=== PATIENT | male | born 1960 | race Caucasian/White ===

== ENCOUNTER 2018-09-14 10:53 | Day surgery (SDC) | payer OTHER, SELFPAY ==
--- NOTE | 2018-09-14 11:06 | PCM.HP.BLA ---
History and Physical Date of Admission: 09/14/18 HISTORY AND PHYSICAL ? Robert López 1960 ? REFERRING PHYSICIAN: Self ? CHIEF COMPLAINT: Consult ? HPI: The patient is a 57 year old male referred for endoscopy. notes a history of colon polyps and family history of colon cancer-brother. He denies any change in bowel habits, weight changes, blood in stools, black tarry stools or abdominal pain. The patient notes no history of upper GI complaints. ? Patient's most recent colonoscopy was in August [address] Green with findings of diverticulosis and benign polyps, 3 year follow-up recommended. ? Patient's past medical history is significant for seizures. States has not had a grand mal seizure in over 20 years, but has had sleep-related focal seizures within the last 5 years. Notes chronic perianal dermatitis and hemorrhoids. Has sleep apnea and uses a CPAP. Denies any cardiac issues. Denies problems with sedation in the past. ? ? PAST?MEDICAL?HISTORY ? Cholelithiasis 02/09/2013 ? Elevated prostate specific antigen (PSA) 04/03/2016 ? Essential hypertension, benign ? ? Grand mal seizure (HCC) 01/19/2013 ? Last seizure in 01-15: majority of his events have been nocturnal in the first hour of sleep MRI 05-20: no frontal lobe abnormalities, rec MRA for possible aneurysm MRA 06-19: negative for aneurysm but there was considerable motion artifact ? HYPERLIPIDEMIA NEC/NOS 12/05/2007 ? LDL 144, HDL 54, TG 147 in 06-15 ? Obstructive sleep apnea ? ? 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 ? Unspecified sleep apnea ? PAST?SURGICAL?HISTORY ? COLONOSCOP W/ OR W/O BRSH SPEC ? 04/01/11 ? COLONOSCOP W/ OR W/O BRSH SPEC ? 08/18/2015 ? Colonoscopy ? CYSTOSCOPY ? 04/03/2016 ? LAP CHOLECYSTECT/CHOLANGIOGRAPHY ? 02/09/13 ? normal IOC ? PAST SURGICAL HISTORY OF ? 2018 ? 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 REPAIR ING HERNIA,5+Y/O,REDUCIBL ? 1961 ? Hernia repair, inguinal ? CURRENT?MEDICATIONS cholecalciferol (VITAMIN D-3) 5,000 unit tab Take 5,000 Units by mouth once daily. tamsulosin ER (FLOMAX) 0.4 mg cap Take 2 capsules by mouth daily at bedtime. Halobetasol Propionate (ULTRAVATE) 0.05 % cream Apply 1 application to affected area as needed. sildenafil (VIAGRA) 50 mg tablet Take 1 tablet by mouth as needed. levETIRAcetam ER (KEPPRA XR) 750 mg 24 hr tablet Take 2 tablets by mouth once daily. Hydrochlorothiazide 12.5 mg capsule TAKE 1 CAPSULE DAILY atenolol (TENORMIN) 50 mg tablet TAKE 1 TABLET DAILY lzpudgyf-fixrutjah-cinutwoiandeap (CORTISPORIN) otic solution Use 3 Drops in both ears four times daily as needed (itching, rash). Take for up to 7 days as needed. DILANTIN 100 mg ER capsule Take THREE (3) capseals every morning and TWO (2) capsules every evening CPAP Please provide pt with CPAP supplies: Mask (pt pref). Tubing, filters, heated humidity. Lifetime supplies. Dx G47.33 aspirin(ECOTRIN LOW STRENGTH 81 MG TAB) Take one(1) tablet daily. ergocalciferol, vitamin D2, (VITAMIN D) 50,000 unit capsule Take 1 capsule by mouth once each week. (Patient not taking: Reported on 08/03/2018 pimecrolimus (ELIDEL) 1 % cream Apply 1 application to affected area twice daily. Dr. Yeung ? ? ALLERGIES: Amoxicillin ? SOCIAL?HISTORY Social History Marital status: Spouse name: Years of education: 19 Number of children: 3 ?Occupational History Occupation Employer Comment [employer]* ?Social History Main Topics Smoking status: Never Smoker ? Smokeless tobacco: Never Used Alcohol use: Yes 1.5 oz/week Mixed Drinks: 1 per week Comment: occasional Drug use: No ? FAMILY HISTORY: ? Heart Mother ? ? congestive heart failure alive age 80s ? Coronary Artery Disease Mother ? ? Hypertension Father ? ? Diabetes Father ? ? Heart Father ? ? Coronary Artery Disease Father ? ? alive age 80s ? Psychiatry Brother ? ? depression ? Prostate Cancer Brother ? ? Colon Cancer Brother ? ? Headache Sister ? ? migraine ? Cancer Brother ? ? intestinal, metastatic to the liver, carcinoid? REVIEW OF SYSTEMS: General: The patient denies fatigue, denies weight loss, denies weight gain, denies feeling hot, and denies feelings of cold. Eyes: The patient denies glaucoma, denies eye injury/surgery, wears glasses or contacts. Ear/Nose/Throat: The patient denies allergies, denies hayfever, denies ear infections, and denies bloody noses. Cardiovascular: The patient denies chest pain, denies heart disease, notes high blood pressure,denies cardiac stent, denies prior heart attack, denies irregular heart beat, denies high cholesterol, denies poor circulation, denies heart failure, other cardiac issues, denies claudication, denies cold feet, denies peripheral arterial stent. Respiratory: The patient denies tuberculosis, denies pneumonia, denies frequent cough, denies pulmonary embolism, denies shortness of breath, and denies coughing up blood. Gastrointestinal: The patient denies difficulty swallowing, denies acid reflux, denies ulcers, denies vomiting, denies jaundice/hepatitis, notes gallbladder problems, denies black or tarry stools, notes hemorrhoids, denies bleeding from rectum, denies diverticulitis, denies constipation, denies diarrhea, denies loss of stool control, and notes hernias. Kidney/Bladder: The patient denies kidney stones, denies urine infections, and denies bloody urine. Skin: The patient denies a history of skin cancer, denies bleeding/changing moles, and denies a history of skin rash. Neurologic: The patient notes a history of epilepsy/convulsions, denies headaches, denies head/spinal injuries, and denies stroke/TIA. Psychiatric: The patient denies psychiatric medications, denies depression, and denies voices, denies substance abuse. Endocrine: The patient denies thyroid disorders, denies diabetes, and denies hormonal problems. Hematologic: The patient denies a history of bruising, denies bleeding, and denies anemia, denies blood clots. Infections: The patient notes a history of measles and mumps, denies rheumatic fever, and denies sexually transmitted diseases. Musculoskeletal: The patient denies back pain/injury, denies back problems, denies sciatica, denies knee/foot trouble, denies arthritis, or denies gout. ? ? ? Last Colonoscopy: 2015 ? ? PHYSICAL EXAMINATION: ? General: The patient is 57 year old male, well nourished, well hydrated in no acute distress. The patient is oriented to time, place, and person. ? VITALS: Blood pressure 140/96, pulse 74, temperature 36.2 ?C (97.1 ?F), weight 120.2 kg (265 lb), SpO2 95 %. Body mass index is 38.57 kg/m?. ? HEENT: Normal cephalic, ataumatic, pupils are equally round, sclera are anicteric, mucous membranes are moist, oropharynx is clear. Neck has no masses, asymmetry or lymphadenopathy. ? Respiratory: Clear to auscultation and percussion. Normal respiratory excursion and pattern. ? Cardiac: Examination is regular rate and rhythm. Normal S1/S2 ? Abdominal exam: Soft, nontender, with no palpable masses. No hepatosplenomegaly. No palpable hernias. ? Rectal exam: exam deferred ? Extremities: no clubbing, cyanosis or edema. No adenopathy. ? IMPRESSION: encounter for screening colonoscopy. Hemorrhoids and perianal dermatitis. History of seizures ? PLAN: I have reviewed my findings with the surgeon. Will plan for colonoscopy with MAC. We discussed the risks and benefits of the planned endoscopy. I have informed the patient that complications can occur including failure to complete the endoscopy and perforation. The patient had the opportunity to ask questions concerning the planned endoscopy. My staff has also explained the procedure to the patient in understandable terms and has given the patient printed material concerning the procedure. The patient freely consents to surgery. ? I plan to use golytely bowel preparation for endoscopy, with 2 days of clear liquid diet ? Patient instructed to remain on all routine medications for the procedure ? The patient has medical comorbidities for which I plan to perform the procedure under monitored anesthetic care. ? ? Patient verbalized understanding of all above and agreed with the plan ? Diagnoses: (Z86.010) Personal history of colonic polyps (primary encounter diagnosis) (Z80.0) Family history of colon cancer (Z12.11) Encounter for screening for malignant neoplasm of colon ? ? Stephanie Waters PA-C
[2018-09-14 11:27] VITALS: BP 137/86; PULSE 66; RESP 16; TEMP 36.7; O2SAT 98; BMI 38.1
[2018-09-14 12:28] VITALS: BP 115/76; BP 137/86; PULSE 64; RESP 16; TEMP 36.4; O2SAT 95
--- NOTE | 2018-09-14 12:28 | OP.ENDO_ITS ---
Patient Name: Robert López Procedure Date: 09/14/2018 12:04 PM Date of : 1960 Age: 57 Procedure: Colonoscopy Indications: High risk colon cancer surveillance: Personal history of colonic polyps, Family history of colon cancer in a first-degree relative Providers: Es Bronson MD Medicines: See the Anesthesia note for documentation of the administered medications Patient Profile: This is a 57 year old male. Refer to note in patient chart for documentation of history and physical. Last Colonoscopy: more than 3 years ago. Complications: No immediate complications. Procedure: Pre-Anesthesia Assessment: - Prior to the procedure, a History and Physical was performed, and patient medications and allergies were reviewed. The patient's tolerance of previous anesthesia was also reviewed. The risks and benefits of the procedure and the sedation options and risks were discussed with the patient. All questions were answered, and informed consent was obtained. Prior Anticoagulants: The patient has taken no previous anticoagulant or antiplatelet agents. ASA Grade Assessment: II - A patient with mild systemic disease. After reviewing the risks and benefits, the patient was deemed in satisfactory condition to undergo the procedure. After I obtained informed consent, the scope was passed under direct vision. Throughout the procedure, the patient's blood pressure, pulse, and oxygen saturations were monitored continuously. The Colonoscope was introduced through the anus and advanced to the cecum, identified by the appendiceal orifice, IC valve and transillumination. The colonoscopy was performed without difficulty. The patient tolerated the procedure well. The quality of the bowel preparation was adequate. Scope In: 12:08:40 PM Scope Withdrawal Time 0 hours 12 minutes 40 seconds Scope Out: 12:24:12 PM Total Procedure Duration Time 0 hours 15 minutes 32 seconds Findings: The perianal and digital rectal examinations were normal. Pertinent negatives include normal sphincter tone. A few small-mouthed early diverticula were found in the sigmoid colon, also lipoma at recto sigmoid junction Non-bleeding internal hemorrhoids were found. Impression: - Diverticulosis in the sigmoid colon. - Non-bleeding internal hemorrhoids. - No specimens collected. Recommendation: - Repeat colonoscopy in 5 years for surveillance. - Return to primary care physician PRN. - Continue present medications. Procedure Code(s): --- Professional --- G0105, Colorectal cancer screening; colonoscopy on individual at high risk Diagnosis Code(s): --- Professional --- Z86.010, Personal history of colonic polyps K64.8, Other hemorrhoids Z80.0, Family history of malignant neoplasm of digestive organs K57.30, Diverticulosis of large intestine without perforation or abscess without bleeding CPT copyright 2017 [employer]. All rights reserved. The codes documented in this report are preliminary and upon phlebotomy manager review may be revised to meet current compliance requirements. MD Es Kidd MD 09/14/2018 12:28:24 PM This report has been signed electronically. Number of Addenda: 0 Note Initiated On: 09/14/2018 12:04 PM
[2018-09-14 12:30] VITALS: BP 133/76; BP 137/86; PULSE 60; RESP 16; O2SAT 96
[2018-09-14 12:35] VITALS: BP 132/78; BP 137/86; PULSE 65; RESP 16; O2SAT 96
[2018-09-14 12:40] VITALS: BP 132/84; BP 137/86; PULSE 64; RESP 16; O2SAT 96
[2018-09-14 12:46] VITALS: BP 135/86; BP 137/86; PULSE 61; RESP 16; TEMP 36.8; O2SAT 97
== END 2018-09-14 13:22 | disposition home or self-care (01) ==
LOC: EN 10:54 → AC 10:57
PROVIDERS: Family Provider Internal Medicine; PCP Internal Medicine; Referring Provider Surgery; Visit Provider Surgery
PROC: 0DJD8ZZ Inspection of Lower Intestinal Tract, Via Natural or Artificial Opening Endoscopic (ICD-10-PCS; CPT 45378; principal; 2018-09-14 11:55)
DX: Z12.11 Encounter for screening for malignant neoplasm of colon (principal); K31.4 Gastric diverticulum; D17.79 Benign lipomatous neoplasm of other sites; Z86.010 Personal history of colon polyps; Z80.0 Family history of malignant neoplasm of digestive organs; G47.33 Obstructive sleep apnea (adult) (pediatric); I10 Essential (primary) hypertension; G40.409 Other generalized epilepsy and epileptic syndromes, not intractable, without status epilepticus; N40.0 Benign prostatic hyperplasia without lower urinary tract symptoms; E78.5 Hyperlipidemia, unspecified; Z79.82 Long term (current) use of aspirin; Z79.899 Other long term (current) drug therapy
CPT/HCPCS: 45378; J7120

== ENCOUNTER 2021-02-24 19:02 | Emergency (ER) | payer OTHER, SELFPAY ==
[2021-02-24 19:02] VITALS: BP 152/81; PULSE 62; PULSE 64; RESP 16; TEMP 35.7; O2SAT 97; BMI 35.8
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
--- NOTE | 2021-02-24 20:45 | CT_ITS ---
EXAM: CT LEFT LOWER EXTREMITY WITHOUT INTRAVENOUS CONTRAST CLINICAL INDICATION: ankle fracture TECHNIQUE: Helically acquired images were obtained of the left lower extremity without intravenous contrast. 2-D reformats were performed by the technologist. This CT exam was performed using one or more of the following dose reduction techniques: automated exposure control, adjustment of the mA and/or kV according to patient size, and/or use of iterative reconstruction technique. This report was created using kapturem report [employer] technology. COMPARISON: None. FINDINGS: BONES/JOINTS: Acute, comminuted fracture of the talus. Single fracture line extends to the superior talar dome. Mild flattening of the talar dome. Multiple small comminuted medial fragments. 2 fracture lines extending to the talocalcaneal joint. Talonavicular joint is intact. Remaining osseous structures are unremarkable. No sclerotic or destructive changes. SOFT TISSUES: Moderate lateral soft tissue hematoma. Moderate subcutaneous edema around the leg and ankle. No radiopaque foreign body. CT/Extremity Lower without Contra IMPRESSION: 1. Acute, comminuted intra-articular fracture of the talus. 2. Lateral soft tissue hematoma. Electronically Signed: Joceline Gongora MD at 21:46 EDT Tel , Service support ,
== END 2021-02-24 22:28 | disposition home or self-care (01) ==
PROVIDERS: Emergency Provider Emergency Medicine; PCP Internal Medicine
DX: S92.102A Unspecified fracture of left talus, initial encounter for closed fracture (principal); I10 Essential (primary) hypertension; Z79.899 Other long term (current) drug therapy; V89.0XXA Person injured in unspecified motor-vehicle accident, nontraffic, initial encounter; Y93.I9 Activity, other involving external motion; Y92.39 Other specified sports and athletic area as the place of occurrence of the external cause; Y99.8 Other external cause status
CPT/HCPCS: 29515; 73610; 73700; 99283

== ENCOUNTER → 2021-04-09 09:54 | Outpatient (CLI) | payer OTHER, SELFPAY ==
[2021-04-09 12:30] LABS: Vitamin D,25 Hydroxy 70.3 ng/mL
== END ==
PROVIDERS: PCP Internal Medicine; Referring Provider Podiatrist; Visit Provider Podiatrist
DX: E55.9 Vitamin D deficiency, unspecified (principal); S92.109A Unspecified fracture of unspecified talus, initial encounter for closed fracture
CPT/HCPCS: 36415; 82306

== ENCOUNTER → 2021-06-02 08:37 | Outpatient (CLI) | payer OTHER, SELFPAY ==
--- NOTE | 2021-06-02 08:48 | CT_ITS ---
STUDY: CT LEFT FOOT REASON FOR EXAM: Male, 60 years old. left talus fracture RADIATION DOSAGE (If Supplied By Facility): CTDIvol = ( 15.35 ) mGy, DLP = ( 365.28 ) mGycm TECHNIQUE: Thin section transaxial imaging of the foot was obtained, with sagittal and coronal reconstructed images. Individualized dose optimization techniques were used for this CT. COMPARISON: 02/24/2021 FINDINGS: BONES/JOINTS: Partial healing of fracture of the talus with bridging bone identified (image 29 series 3). No change in alignment. Persistent fracture line extends from the superior talar dome to the sustentaculum. Multiple small comminuted medial fragments. No new fracture. Talonavicular joint is intact. Remaining osseous structures are unremarkable. No sclerotic or destructive changes. SOFT TISSUES: Resolution of soft tissue swelling. No radiopaque foreign body. CT/Extremity Lower without Contra IMPRESSION: 1. Partial healing of comminuted intra-articular fracture of the talus. Stable alignment. 2. Resolution of lateral hematoma and soft tissue swelling Electronically Signed: Catracho Mauricio MD ([place]) at 19:29 EST , Service support ,
== END ==
PROVIDERS: PCP Internal Medicine; Visit Provider Podiatrist
DX: S92.125D Nondisplaced fracture of body of left talus, subsequent encounter for fracture with routine healing (principal); M25.572 Pain in left ankle and joints of left foot; M96.0 Pseudarthrosis after fusion or arthrodesis
CPT/HCPCS: 73700

== ENCOUNTER 2021-08-06 13:32 | Outpatient (CLI) | payer OTHER, SELFPAY ==
--- NOTE | 2021-08-06 13:40 | CT_ITS ---
STUDY: CT SCAN LOWER EXTREMITY LEFT REASON FOR EXAM: Male, 60 years old. History of fracture of the left talus. RADIATION DOSAGE (If Supplied By Facility): CTDIvol = ( 15.35 ) mGy, DLP = ( 445.87 ) mGycm. Individualized dose optimization techniques were used for this CT.? TECHNIQUE: Multiple axial tomographic images were obtained without intravenous contrast administration. Coronal and sagittal reconstruction was obtained as well. COMPARISON: Comparison is made with prior study dated 06/02/2021. FINDINGS: Once again, this evidence of a incomplete healing of the fracture of the talus along the medial aspect. The fracture line is once again seen and extends from the superior talar dome to the sustentaculum. Subchondral cysts are seen in the dome of the talus. Calcaneal spur. CT/Extremity Lower without Contra IMPRESSION: Incomplete healing of the fracture of the medial aspect of the talus extending from the superior talar dome to the sustentaculum. Electronically Signed: Grupo Soni MD at 14:12 EST , Service support ,
== END 2021-08-06 23:59 | disposition short-term general hospital (02) ==
PROVIDERS: PCP Internal Medicine; Referring Provider Specialist; Visit Provider Specialist
DX: S92.122A Displaced fracture of body of left talus, initial encounter for closed fracture (principal)
CPT/HCPCS: 73700